=== PATIENT | female | born 1995 | race Hispanic/Latino ===

== ENCOUNTER → 2024-03-19 13:44 | Outpatient (CLI) | payer OTHER, MEDICAID, SELFPAY ==
--- NOTE | 2024-03-19 | DI.US.S_ITS ---
PROCEDURE: US OB >= 14 WEEKS FETUS INDICATIONS: ANATOMY SCAN OUTSIDE/PRIOR DATING DATA: Last menstrual period (LMP): 10/08/2023. LMP-based estimated date of delivery (FRANCIE): 07/14/2023. The calculations are made using the clinical FRANCIE of 07/14/2023. TECHNIQUE: Real-time scanning was performed of the fetus, with image documentation and biometric measurements. Endovaginal scanning: Not performed COMPARISON: None. FINDINGS: General: A single living intrauterine gestation is present. Presentation: Variable. Placenta: Placental position is posterior , without previa. Amniotic fluid index: 14.1 cm, normal range is 5-24 cm. Single deepest vertical pocket is 5.9 cm. heart rate: 145 beats per minute. Maternal cervical canal: 6.7 cm long. Normal lower limit is 2.5 cm. biometrics: Biparietal diameter: 5.6 cm, 23 weeks 1 day Head circumference: 20.3 cm, 22 weeks 3 days Abdominal circumference: 18.6 cm, 23 weeks 3 days Femur length: 3.8 cm, 22 weeks 2 days Clinically estimated gestational age: 23 weeks 2 days Composite gestational age from present scan: 22 weeks 6 days Estimated weight and percentile: 544 g, 25th percentile Anatomic survey: Neuro: Ventricles are non-dilated at less than 10 mm. Cisterna magna is normal at 3-11 mm. Cerebellum is normal in size and morphology. Nuchal skin fold: Normal at less than 6 mm between 14-21 weeks gestational age. Face: Nose and lips, facial profile are normal. Spine: No evidence for spina bifida. Heart: 4-chambered heart is present, with normal ventricular outflow tracts. Diaphragm: Diaphragm is intact. Stomach: Left-sided stomach is present. Kidneys: No hydronephrosis. Normal is less than 5 mm in 2nd trimester, less than 7 mm in 3rd trimester. Cord: 3-vessel cord has orthotopic insertion. Bladder: Normal in size. Extremities: All 4 extremities identified. IMPRESSION: Single living intrauterine at 23 weeks 2 days, FRANCIE of 07/14/2023. Estimated weight 544 g, 25th percentile. Normal anatomy survey. We strive to produce accurate, complete, and clear reports of imaging services. To assist us in improving patient care, this report was composed using standard report templates and voice recognition software. Therefore, it may contain abnormal punctuation, insertions and/or omissions. Occasional wrong-word or sound-alike substitutions may occur. Though we review the report and make efforts to correct it, we do recommend that the report be read carefully in proper context to recognize any text inaccuracies. Dictated by: Edgar Fournier M.D. on 03/19/2024 at 16:39 Approved by: Edgra Fournier M.D. on 03/19/2024 at 16:41
== END ==
PROVIDERS: PCP Family Medicine; Referring Provider Family Medicine; Visit Provider Family Medicine
DX: Z34.82 Encounter for supervision of other normal pregnancy, second trimester (principal); Z3A.23 23 weeks gestation of pregnancy
CPT/HCPCS: 76811